=== PATIENT | male | born 1955 | race Caucasian/White ===

== ENCOUNTER 2016-06-03 01:18 | Emergency (ER) | payer OTHER ==
[~2016-06-03] VITALS: Ht 190.5 cm; Wt 108.9 kg
[2016-06-03 01:57] LABS: Basophils # (auto) 0 uL; Basophils % (auto) 0.3 % (0.0-2.0); Eosinophils # (auto) 0.2 uL; Eosinophils % (auto) 2.5 % (0.0-7.0); Hematocrit 42.3 % (41.0-53.0); Hemoglobin 13.9 g/dL (13.5-17.5); Lymphocytes % (auto) 13.5 % (10.0-50.0); Mean Platelet Volume 7.2 fL (7.4-10.4); Monocytes # (auto) 0.8 uL; Monocytes % (auto) 11.1 % (0.0-12.0); Neutrophils # (auto) 5.3 uL; Neutrophils % (auto) 72.6 % (37.0-80.0); Platelet Count (auto) 233 10^3/uL (140-450); Red Cell Distribution Width 13.6 % (11.6-16.0); White Blood Cell 7.3 10^3/uL (4.4-10.8)
[2016-06-03 02:16] LABS: Albumin 3.4 g/dL (3.4-5.0); Anion Gap 7 (5-15); Calcium 8.3 mg/dL (8.5-10.1); Carbon Dioxide 29 mmol/L (21-32); Chloride 100 mmol/L (98-107); Glucose 173 mg/dL (74-106); Magnesium 2.2 mg/dL (1.6-2.6); Potassium 4.4 mmol/L (3.5-5.1); Sodium 136 mmol/L (136-145)
[2016-06-03 02:19] LABS: Alkaline Phosphatase 70 U/L (45-117); Aspartate Aminotransferase 26 U/L (15-37); BUN/Creatinine Ratio 16.5; Bilirubin, Total 0.6 mg/dL (0.2-1.0); Blood Urea Nitrogen 17 mg/dL (7-18); GFR African American 94 mL/min; GFR Non-African American 78 mL/min; Partial Thromboplastin Time 28.4 sec (22.64-33.71); Total Protein 7.2 g/dL (6.4-8.2)
[2016-06-03 02:24] LABS: B-Type Natriuretic Peptide 12.7 pg/mL (0-100); Temperature: 21.2 C (20.0-25.0)
[2016-06-03 02:30] LABS: INR 1.16 (0.9-1.15); Prothrombin Time 12.5 sec (9.37-12.3)
[2016-06-03] MEDS ORDERED: LORazepam 0.5 MG TAB PO ONE (04:15)
[2016-06-03] MEDS ORDERED: cefTRIAXone 1GM/50ML D5W 50 ML IV ONE (06:45)
[2016-06-03 07:15] VITALS: BP 146/93
== END 2016-06-03 07:53 | disposition home or self-care (01) ==
LOC: ER 01:18 → EDBD 01:18 → ER 07:53
DX: S22.32XA Fracture of one rib, left side, initial encounter for closed fracture (principal); E11.65 Type 2 diabetes mellitus with hyperglycemia; J90 Pleural effusion, not elsewhere classified; F41.9 Anxiety disorder, unspecified; W19.XXXA Unspecified fall, initial encounter; Y93.89 Activity, other specified; Y99.8 Other external cause status; Y92.89 Other specified places as the place of occurrence of the external cause
CPT/HCPCS: 36415; 71010; 71101; 80053; 83735; 83880; 84484; 85025; 85379; 85610; 85730; 93005; 99285; J7030